=== PATIENT | male | born 1960 | race Caucasian/White ===

== ENCOUNTER 2020-02-04 11:24 | Emergency (ER) | payer MEDICARE, MEDICAID, SELFPAY ==
[2020-02-04 11:24] VITALS: BP 153/84; PULSE 67; RESP 16; TEMP 36.7; O2SAT 97; BMI 30.9
--- NOTE | 2020-02-04 11:39 | W.ED.BACK ---
HPI - Back Pain/Injury General: Chief Complaint: Back Pain/Injury Stated Complaint: BACK PAIN Time Seen by Provider: 02/04/20 11:25 History of Present Illness: HPI Narrative: 59 yo male comes in complaining of low back pain. He has chronic back pain has been to see the pain clinic has had MRI not found any surgical lesions and recommended physical therapy as well as some ablation or epidurals patient has declined and has been trying to do exercise on his own at home. Today he has worsening low back pain no bowel or bladder dysfunction has been noted. Pain is limited to his lumbar region does not radiate into the legs. No recent trauma associated with this pain. Associated symptoms: Deny abdominal pain, chills, dysuria, fatigue, fever(s), nausea, urinary urgency or vomiting Review of Systems Const: Denies: fever, chills, body aches, change in appetite, fatigue or malaise ENMT: Denies: throat pain, ear pain, nasal discharge or nasal congestion Card: Denies: chest pain, edema, shortness of breath on exertion or shortness of breath when lying down Resp: Denies: shortness of breath, productive cough or non-productive cough GI: Denies: abdominal pain, nausea, vomiting, vomiting blood, coffee grounds in vomit, diarrhea, constipation, bloating, blood in stool or black tarry stool : Denies: flank pain, painful urination, urinary frequency or urinary urgency Musc: Reports: back pain Skin/Breast: Denies: rash or itching PFSH ED PFSH: Social History Smoking and tobacco status: former smoker Physical Exam Const: COMMON NORMALS: no apparent distress GENERAL APPEARANCE: cooperative and comfortable ORIENTATION/CONSCIOUSNESS: Yes awake, Yes oriented to person, Yes oriented to place and Yes oriented to time HENMT: COMMON NORMALS: normocephalic, head/scalp atraumatic, hearing grossly normal bilaterally, external ears normal, EAC's normal, TM's normal bilaterally, nasal mucous membranes and turbinates normal, moist oral mucous membranes and oropharynx normal HEAD & SCALP: normocephalic and atraumatic NOSE: nasal mucous membranes and turbinates normal EXTERNAL EAR: Yes external ears normal EXTERNAL AUDITORY CANAL: EAC's normal TYMPANIC MEMBRANE: TM's normal bilaterally Eye: COMMON NORMALS: PERRL, EOMs intact bilaterally, conjunctivae normal and no scleral icterus CONJUNCTIVA: Yes conjunctivae normal PUPIL: Yes PERRL Neck/C-Spine: COMMON NORMALS: full ROM, no lymphadenopathy, supple and no JVD Lymph: LYMPHATIC: no lymphadenopathy noted and no lymphedema noted Resp: COMMON NORMALS: normal respiratory effort, no retractions, no use of accessory muscles and clear to auscultation bilaterally AUSCULTATION: clear to auscultation bilaterally Cardio: COMMON NORMALS: no JVD, regular rate, regular rhythm and no murmurs RATE: regular rate RHYTHM: regular rhythm GI: COMMON NORMALS: soft to palpation and no hepatosplenomegaly AUSCULTATION: Yes normoactive bowel sounds PALPATION: Yes soft, No tender, No guarding and Yes no hepatosplenomegaly Extremity: COMMON NORMALS: normal to inspection, normal capillary refill, no clubbing, cyanosis or edema, no calf tenderness and no pedal edema Neuro: SENSORIUM/ORIENTATION: Yes oriented to person, Yes oriented to place and Yes oriented to time MOTOR EXAM: strength 5/5 throughout DEEP TENDON REFLEXES: Rt Patellar (L4): 2+ and Lt Patellar (L4): 2+ OTHER: Straight leg raising is negative dorsum plantar flexion strength 5/5. Skin: COMMON NORMALS: no rashes or lesions noted GENERAL SKIN EXAM: no rashes or lesions noted Course Vital Signs: Vital signs: Vital Signs Temperature 98.0 F 02/04/20 11:24 Pulse Rate 62 02/04/20 15:19 Respiratory Rate 12 02/04/20 15:31 Blood Pressure 156/81 02/04/20 15:19 Pulse Oximetry 99 02/04/20 15:19 MDM - Back Pain/Injury MDM Narrative: Medical decision making narrative: Chronic back pain would recommend discharging patient home with anti-inflammatories and muscle relaxers I do strongly encourage patient to pursue physical therapy which physical therapy come down they did help him somewhat able to eventually do some improvement. We will discharge him home have him follow-up with for pain clinic for physical therapy referral or further treatments for long-term chronic low back pain. Discharge Plan Discharge Patient Disposition: Home, Self-Care Clinical Impression: Strain of lumbar region Condition: Stable Prescriptions: New diclofenac sodium 75 mg tablet,delayed release (DR/EC) 75 mg PO Q12H PRN (Reason: pain) Qty: 20 RF: 0 Medrol (Jonnathan) 4 mg tablets,dose pack See Rx Instructions .ROUTE .COMPLEX Qty: 21 RF: 0 Discontinued ibuprofen 800 mg tablet 800 mg PO TID PRN (Reason: Pain) RF: 0 No Action losartan 50 mg tablet 50 mg PO DAILY RF: 0 cyclobenzaprine 10 mg tablet 10 mg PO DAILY RF: 0 ipratropium-albuterol 0.5 mg-3 mg(2.5 mg base)/3 mL solution for nebulization 3 ml INHALATION Q6H PRN (Reason: Shortness Of Breath) RF: 0 simvastatin 40 mg tablet 40 mg PO DAILY RF: 0 famotidine 20 mg tablet 20 mg PO BID RF: 0 lorazepam 0.5 mg tablet 0.25 - 0.5 mg PO Q6H PRN (Reason: Anxiety) RF: 0 montelukast 10 mg tablet 10 mg PO DAILY RF: 0 albuterol sulfate 90 mcg/actuation HFA aerosol inhaler 2 puff INHALATION Q6H PRN (Reason: Shortness Of Breath) RF: 0 Symbicort 160-4.5 mcg/actuation Hfa Aerosol Inhaler 2 puff INHALATION BID RF: 0 Discharge Orders: Discharge Order (Routine); Ordered 02/04/20 Ordered By: Fuad Sarabia Referrals: Kym Stinson, [employer]IS[employer] DEVELOPER[employer] [Family Provider] - Discharge Diet: Advance as tolerated Discharge Activity: Limit activity as instructed Patient Instructions: Chronic Back Pain (ED) Discharge Date/Time: 02/04/20 17:20 Coding Level of Care Code ED Career Advisor for Leslie Beck
[2020-02-04] MEDS: ketorolac 30 mg/mL INJ IVP (12:50)
[2020-02-04] MEDS: orphenadrine 30 mg/mL Inj 2 mL 60 MG IVP (12:51)
[2020-02-04 15:19] VITALS: BP 156/81; PULSE 62; RESP 18; O2SAT 99
[2020-02-04 15:31] VITALS: RESP 12
[2020-02-04] MEDS: morphine 4 mg/mL SDV 1 mL 2 MG IVP (15:31)
--- NOTE | 2020-02-04 16:25 | PC.NURSE ---
patient is attemting to sit up at this time
--- NOTE | 2020-02-07 09:07 | DCPLANNER ---
manager ship had message to schedule a follow up appointment for patient for physical therapy. manager ship had order signed for patient to receive physical therapy and faxed to Toro at the [facility] with rehab. manager ship called Toro to make sure she got the order and that everything was ok with the order. Toro stated that the order was received and that the patient is scheduled to start services.
== END 2020-02-04 17:20 | disposition home or self-care (01) ==
PROVIDERS: Emergency Provider Family Medicine; Family Provider Nurse Practitioner Family
DX: S39.012A Strain of muscle, fascia and tendon of lower back, initial encounter (principal); X58.XXXA Exposure to other specified factors, initial encounter; Z87.891 Personal history of nicotine dependence
CPT/HCPCS: 12345; 96374; 96375; 97161; 99282; 99284; J1885; J2270; J2360

== ENCOUNTER 2020-02-18 06:00 | Outpatient (RCR) | payer MEDICARE, MEDICAID, SELFPAY | END 2020-03-16 23:59 | disposition home or self-care (01) | LOC: WPT 06:00 | PROVIDERS: Family Provider Nurse Practitioner Family; PCP Nurse Practitioner Family; Referring Provider Family Medicine; Visit Provider Family Medicine | DX: M54.5 Low back pain (principal) | CPT/HCPCS: 97110; 97163; G0283 ==

== ENCOUNTER 2020-03-17 06:00 | Outpatient (RCR) | payer MEDICARE, MEDICAID, SELFPAY | END 2020-04-15 23:59 | disposition home or self-care (01) | LOC: WPT 06:00 | PROVIDERS: PCP Nurse Practitioner Family; Visit Provider Family Medicine | DX: M54.5 Low back pain (principal) | CPT/HCPCS: 97110 ==

== ENCOUNTER 2020-07-08 13:26 | Outpatient (CLI) | payer MEDICARE, MEDICAID, SELFPAY ==
--- NOTE | 2020-07-08 14:17 | XR_ITS ---
WS: [id number] DEXA (DUAL ENERGY X-RAY ABSORPTIOMETRY) Bone mineral density was performed using a Adrenaline Mobility machine. HISTORY: WEDGE FRACTURE OF VERTEBRA, INITIAL ENCOUNTER FOR FRACTURE COMPARISON: None available. Lumbar spine BMD (L1-L4): 1.184 g/cm2 T score: -0.3 Z score: -0.7 Total hip BMD: Left: 1.135 g/cm2. T score: 0.2 Z score: 0.3 Right: 1.215 g/cm2. T score: 0.8 Z score: 0.8 10 year probability of a major osteoporotic fracture is 12%. XR/XR DEXA axial skeleton* [id number] IMPRESSION: NORMAL BONE MINERAL DENSITY.
--- NOTE | 2020-07-08 14:17 | MR_ITS ---
WS: [id number] MRI CERVICAL SPINE HISTORY: NECK PAIN COMPARISON: None available. Reversal of the upper cervical spine and increased lordosis in the lower cervical spine. There is displacement and desiccation throughout. 3 mm retrolisthesis of C4. No fractures or marrow e linda. Craniocervical junction, C1 and C2 relationship, odontoid process and soft tissues are normal. C2-C3: Normal. C3-C4: Mild osteophytic ridging and annular disc bulging. Larger disc osteophyte complex on the LEFT causing moderate to severe LEFT foraminal stenosis and moderate on the RIGHT. C4-C5: Diffuse osteophytic ridging with disc osteophyte complexes and the neural foramen. Mild centra l with moderate to severe bilateral foraminal stenosis. C5-C6: Diffuse osteophytic ridging with effacement of CSF. Severe central and bilateral foraminal lenin nosis. C6-C7: Central disc protrusion with circumferential disc osteophyte disease. Severe central and bilat eral foraminal stenosis. C7-T1: Normal. Paraspinal soft tissue are normal. Air-fluid level in the sphenoid sinus. MR/MR cervical spin wo con* [id number] IMPRESSION: 1. Multilevel moderate to severe degenerative disc disease. 2. Severe central and bilateral foraminal stenosis at C5-6 and C6-7 due to com bination of osteophytes and disc disease. 3. Mild central with moderate to severe bilateral foraminal stenosis at C4-5. 4. Moderate to severe LEFT and moderate RIGHT foraminal stenosis at C3-4.
== END 2020-07-08 13:27 | disposition home or self-care (01) ==
LOC: RADWPI 13:31
PROVIDERS: PCP Nurse Practitioner Family; Visit Provider Nurse Practitioner Family
DX: M48.50XA Collapsed vertebra, not elsewhere classified, site unspecified, initial encounter for fracture (principal); M50.30 Other cervical disc degeneration, unspecified cervical region; M48.02 Spinal stenosis, cervical region
CPT/HCPCS: 72141; 77080

== ENCOUNTER → 2020-08-07 10:11 | Outpatient (BNVA) | payer MEDICARE, MEDICAID, SELFPAY | PROVIDERS: PCP Nurse Practitioner Family; Visit Provider Orthopaedic Surgery | DX: M54.5 Low back pain (principal) | CPT/HCPCS: 72100; 72114 ==

== ENCOUNTER → 2021-03-23 10:34 | Outpatient (BNVA) | payer MEDICARE, MEDICAID, SELFPAY | PROVIDERS: PCP Nurse Practitioner Family; Visit Provider Internal Medicine | DX: R76.8 Other specified abnormal immunological findings in serum (principal); Z11.59 Encounter for screening for other viral diseases; Z11.1 Encounter for screening for respiratory tuberculosis; M25.50 Pain in unspecified joint; Z79.899 Other long term (current) drug therapy; Z87.891 Personal history of nicotine dependence; L40.9 Psoriasis, unspecified | CPT/HCPCS: 36415; 72202; 73120; 73620; 82550; 86480; 86704; 86803; 87340; 99214 ==

== ENCOUNTER 2021-03-23 12:15 | Outpatient (CLI) | payer MEDICARE, MEDICAID, SELFPAY ==
--- NOTE | 2021-03-23 12:24 | XRR_ITS ---
PROCEDURE INFORMATION: Exam: XR Right Hand Exam date and time: 03/23/2021 12:30 PM Age: 60 years old Clinical indication: Condition or disease; Other: Other specified abnormal immunological findings i. . . ; Additional info: R76.8 - other specified abnormal immunological findings i. . . TECHNIQUE: Imaging protocol: XR Right hand. Views: 1 or 2 views. COMPARISON: US SoftTissue/Extrem t [id number] 04/16/2019 9:50 AM FINDINGS: Bones/joints: Unremarkable Soft tissues: Normal. XR/XR hand RT 2V [id number] IMPRESSION: No acute findings.
--- NOTE | 2021-03-23 12:24 | XRR_ITS ---
PROCEDURE INFORMATION: Exam: XR Left Hand Exam date and time: 03/23/2021 12:30 PM Age: 60 years old Clinical indication: Condition or disease; Other: Other specified abnormal immunological findings i. . . ; Additional info: R76.8 - other specified abnormal immunological findings i. . . TECHNIQUE: Imaging protocol: XR Left hand. Views: 3 or more views. COMPARISON: US SoftTissue/Extrem t [id number] 04/16/2019 9:50 AM FINDINGS: Bones/joints: Unremarkable Soft tissues: Normal. XR/XR hand LT 2V [id number] IMPRESSION: No acute findings.
--- NOTE | 2021-03-23 12:24 | XRR_ITS ---
PROCEDURE INFORMATION: Exam: XR Left Foot Exam date and time: 03/23/2021 12:30 PM Age: 60 years old Clinical indication: Pain; Foot; Bilateral; Additional info: M25.50 - pain in unspecified joint TECHNIQUE: Imaging protocol: XR Left foot. Views: 1 or 2 views. COMPARISON: US SoftTissue/Extrem Lmt [id number] 04/16/2019 9:50 AM FINDINGS: Bones/joints: Negative for acute bony abnormality. Bone spur calcaneus Soft tissues: Normal. XR/XR foot LT 2V [id number] IMPRESSION: 1. No acute findings. 2. Bone spur inferior calcaneus
--- NOTE | 2021-03-23 12:24 | XRR_ITS ---
PROCEDURE INFORMATION: Exam: XR Right Foot Exam date and time: 03/23/2021 12:30 PM Age: 60 years old Clinical indication: Pain; Foot; Bilateral; Additional info: M25.50 - pain in unspecified joint TECHNIQUE: Imaging protocol: XR Right foot. Views: 1 or 2 views. COMPARISON: US SoftTissue/Extrem t [id number] 04/16/2019 9:50 AM FINDINGS: Bones/joints: Unremarkable Soft tissues: Normal. XR/XR foot RT 2V [id number] IMPRESSION: No acute findings.
--- NOTE | 2021-03-23 12:24 | XRR_ITS ---
PROCEDURE INFORMATION: Exam: XR Bilateral Sacroiliac Joints Exam date and time: 03/23/2021 12:30 PM Age: 60 years old Clinical indication: Condition or disease; Other: L40.9 - psoriasis, unspecified TECHNIQUE: Imaging protocol: XR Bilateral XR of the sacroiliac joints. Views: 3 or more views. COMPARISON: No relevant prior studies available. FINDINGS: Bones/joints: Normal. No acute fracture. Soft tissues: Normal. XR/XR sacroiliac [facility] [place] 3V [id number] IMPRESSION: No acute findings.
== END 2021-03-23 12:16 | disposition home or self-care (01) ==
PROVIDERS: PCP Nurse Practitioner Family; Visit Provider Internal Medicine
DX: M25.50 Pain in unspecified joint (principal); R76.8 Other specified abnormal immunological findings in serum; L40.9 Psoriasis, unspecified; Z11.59 Encounter for screening for other viral diseases; Z11.1 Encounter for screening for respiratory tuberculosis
CPT/HCPCS: 72202; 73120; 73620; 82550; 86480; 86704; 86803; 87340

== ENCOUNTER → 2021-07-27 10:28 | Outpatient (BNVA) | payer MEDICARE, MEDICAID, SELFPAY | PROVIDERS: PCP Nurse Practitioner Family; Visit Provider Internal Medicine | DX: R76.8 Other specified abnormal immunological findings in serum (principal); M10.9 Gout, unspecified | CPT/HCPCS: 80053; 84550; 85025; 85651; 86140 ==

== ENCOUNTER → 2021-07-29 10:01 | Outpatient (BNVA) | payer MEDICARE, MEDICAID, SELFPAY | PROVIDERS: PCP Nurse Practitioner Family; Visit Provider Internal Medicine | DX: R76.8 Other specified abnormal immunological findings in serum (principal); L57.0 Actinic keratosis; Z87.891 Personal history of nicotine dependence | CPT/HCPCS: 99214 ==

== ENCOUNTER → 2021-10-22 09:41 | Outpatient (BNVA) | payer MEDICARE, MEDICAID, SELFPAY | PROVIDERS: PCP Nurse Practitioner Family; Visit Provider Internal Medicine | DX: M05.9 Rheumatoid arthritis with rheumatoid factor, unspecified (principal); Z79.899 Other long term (current) drug therapy; R21 Rash and other nonspecific skin eruption; Z87.891 Personal history of nicotine dependence | CPT/HCPCS: 99213 ==

== ENCOUNTER → 2024-06-26 08:51 | Outpatient (BNVA) | payer OTHER, MEDICAID, SELFPAY | PROVIDERS: PCP Nurse Practitioner Family; Visit Provider Orthopaedic Surgery | DX: M54.2 Cervicalgia (principal); M54.12 Radiculopathy, cervical region | CPT/HCPCS: 72050; 99214 ==

== ENCOUNTER → 2024-07-24 14:11 | Outpatient (BNVA) | payer OTHER, MEDICAID, SELFPAY | PROVIDERS: PCP Nurse Practitioner Family; Visit Provider Student in an Organized Health Care Education/Training Program | DX: M25.561 Pain in right knee (principal); M17.11 Unilateral primary osteoarthritis, right knee | CPT/HCPCS: 73560; 73565; 99203 ==

== ENCOUNTER 2024-08-06 13:05 | Outpatient (CLI) | payer OTHER, MEDICAID, SELFPAY ==
--- NOTE | 2024-08-06 13:45 | MR_ITS ---
WS: [id number] MRI CERVICAL SPINE NONCONTRAST HISTORY: Neck Pain COMPARISON: 07/08/2020 Technique: Multiplanar, multisequence noncontrast imaging of the cervical spine. Reversal of the normal upper cervical lordosis. Increase in the lower cervical lordosis. Mild progres olga of malalignment since the prior study from 2019. 3 mm retrolisthesis of C4 and C5. Disc spaces a re all moderately narrowed. No acute fracture or marrow edema. Signal within the cervical cord is normal. Visualized posterior fossa is unremarkable. Craniocervical junction, C1 and C2 relationship, odontoid process and soft tissues are normal. C2-C3: Mild LEFT foraminal narrowing. C3-C4: Osteophytic ridging with annular disc bulging. Larger LEFT foraminal osteophytes. Mild central and RIGHT foraminal stenosis. Moderate to severe LEFT foraminal stenosis. C4-C5: Diffuse annular disc bulging with facet joint arthritis. Retrolisthesis of C4 contributing to severe central and bilateral foraminal stenosis. C5-C6: Diffuse annular disc bulging with osteophytic ridging encroaching upon the ventral thecal sac. Facet arthritis and foraminal osteophytes. Severe central and bilateral foraminal stenosis. C6-C7: Mild annular disc bulging and facet arthritis. Mild bilateral foraminal stenosis. C7-T1: Normal. Paraspinal soft tissue are normal. MR/MR cervical spin wo con* [id number] IMPRESSION: 1. Mild interval progression of degenerative cervical spondylosis and curvatur e since 07/08/2020. 2. Multilevel areas of significant central and foraminal stenosis. 3. C3-4: Mild central and RIGHT foraminal stenosis with moderate to severe LEF T foraminal stenosis. 4. C4-5: Severe central and bilateral foraminal stenosis. 5. C5-6: Severe central and bilateral foraminal stenosis. 6. C6-7: Moderate bilateral foraminal stenosis.
== END 2024-08-06 13:06 | disposition home or self-care (01) ==
LOC: RAD 13:06
PROVIDERS: PCP Nurse Practitioner Family; Visit Provider Orthopaedic Surgery
DX: M43.12 Spondylolisthesis, cervical region (principal); M99.61 Osseous and subluxation stenosis of intervertebral foramina of cervical region; M25.78 Osteophyte, vertebrae; M50.322 Other cervical disc degeneration at C5-C6 level
CPT/HCPCS: 72141

== ENCOUNTER → 2024-11-05 14:25 | Outpatient (BNVA) | payer OTHER, MEDICAID, SELFPAY | PROVIDERS: PCP Nurse Practitioner Family; Visit Provider Surgery | DX: K40.20 Bilateral inguinal hernia, without obstruction or gangrene, not specified as recurrent (principal) | CPT/HCPCS: 99204 ==

== ENCOUNTER → 2024-11-08 12:55 | Outpatient (BNVA) | payer OTHER, MEDICAID, SELFPAY | PROVIDERS: PCP Nurse Practitioner Family; Visit Provider Orthopaedic Surgery | DX: Z09 Encounter for follow-up examination after completed treatment for conditions other than malignant neoplasm (principal) | CPT/HCPCS: 99214 ==

== ENCOUNTER 2024-11-20 07:05 | Day surgery (SDC) | payer OTHER, MEDICAID, SELFPAY ==
[2024-11-20] VITALS (17 sets, daily range): BP systolic 112–170; BP diastolic 80–120; PULSE 61–75; RESP 12–68; TEMP 36.2–36.4; O2SAT 93–98; BMI 31.1
[2024-11-20] MEDS: sodium chloride 0.9% 1,000 ML 30 ML IV (07:39)
[2024-11-20] MEDS: ipratropium-albuterol 3 mL Neb INHALATION (07:54)
--- NOTE | 2024-11-20 08:01 | ANES.PREANE2 ---
Pre-Anesthetic Assessment Height/Weight: Height 1.8 m Weight 101.151 kg Temp Pulse Resp BP Pulse Ox O2 Del Method 97.2 F L 75 18 130/99 96 Room Air 11/20/24 07:21 11/20/24 07:21 11/20/24 07:21 11/20/24 07:21 11/20/24 07:21 11/20/24 07:21 Operation Date: 11/20/24 09:05 Proposed Procedures p lap bilateral inguinal hernia repair with mesh [id number] x2, K40.20(Bilateral) - Juventino Gonzales DO Familial anesthetic complications: None Was Beta Adam taken within 24 hours: N/A Was Clonidine taken within 24 hours: N/A Last intake: Intake Last Liquid Date 11/19/24 Last Liquid Time 22:30 Last Solid Date 11/19/24 Last Solid Time 14:00 Social No alcohol and No tobacco Exam alert, oriented x 3, clear to auscultation bilaterally (Bilateral wheezes, all lobes) and regular rate & rhythm Airway Mallampati: Class III Dentition: other (none) Comments: Comments: full [place] Pulmonary Chronic Obstructive Pulmonary Disease (O2 at home) and Sleep Apnea GI Gastroesophageal Reflux Disease Anesthetic Plan ASA status: 4 Anesthesia: General Risk of > 500 ml blood loss (7ml/kg in children): No Medications/Allergies Home Medications ?Medication ?Instructions ?Recorded ?Confirmed ?Last Taken ?Type albuterol sulfate 90 mcg/actuation 2 puff inhalation Q6H PRN 02/04/20 11/19/24 11/19/24 History aerosol inhaler Shortness Of Breath budesonide-formoterol HFA 160 2 puff inhalation BID 02/04/20 11/19/24 11/20/24 History mcg-4.5 mcg/actuation aerosol inhaler (Symbicort) cyclobenzaprine 10 mg tablet 10 mg PO DAILY 02/04/20 11/19/24 02/04/20 History famotidine 20 mg tablet 20 mg PO BID 02/04/20 11/19/24 11/19/24 History ipratropium 0.5 mg-albuterol 3 mg 3 ml inhalation Q6H PRN Shortness 02/04/20 11/20/24 11/19/24 History (2.5 mg base)/3 mL nebulization Of Breath soln montelukast 10 mg tablet 10 mg PO DAILY PRN allergies 10/22/21 11/19/24 Unknown History tamsulosin 0.4 mg capsule 0.4 mg PO DAILY 11/05/24 11/19/24 11/19/24 History Allergies Allergy/AdvReac Type Severity Reaction Status Date / Time sertraline (From Zoloft) Allergy Intermediate ALGY-Rash Verified 11/08/24 13:06 Current Medications Generic Name Dose Route Start Last Admin Trade Name Troyq PRN Reason Stop Dose Admin Sodium Chloride 1,000 mls @ 30 mls/hr 11/20/24 07:15 11/20/24 07:39 Sodium Chloride 0.9% IV 11/21/24 07:14 30 mls/hr .Q24H JUAREZ Administration PFSH Anesthesia Medical History Arthritis Stenosis, cervical spine Family History Sister Cancer Diabetes Hypertension Brother Cancer Diabetes Hypertension Mother Cancer Hypertension Family/Other Rheumatoid arthritis Denies family history of CAD (coronary artery disease) Stroke Social History Smoking and tobacco/nicotine status: never used tobacco/nicotine Alcohol intake: never Substance/Drug Use: never Data Anesthesia Cardiac Studies: No Data to Display
[2024-11-20] MEDS: ceFAZolin 2,000 mg SDV 2000 MG IVP (08:34)
--- NOTE | 2024-11-20 08:35 | W.PM.OPSUD ---
Surgery/Procedure H&P Update DATE OF PROCEDURE: November 20, 2024 DATE H&P PERFORMED: 11/05/24 H&P UPDATE INFORMATION: I have reviewed H&P completed within last 30 days, I have examined patient prior to procedure and No changes to prior documentation PLANNED PROCEDURE: Operation Date: 11/20/24 09:05 Proposed Procedures p lap bilateral inguinal hernia repair with mesh [id number] x2, K40.20(Bilateral) - Juventino Gonzales DO
[2024-11-20] MEDS: lidocaine-epi 2% PF 1:200,000 20 mL SDV XX (09:01)
--- NOTE | 2024-11-20 09:40 | PM.OP ---
Operative Report Date of procedure: November 20, 2024 Surgeon: Juventino Gonzales DO Procedure: Pre-op diagnosis: Bilateral inguinal hernias Post-op diagnosis: Bilateral indirect inguinal hernias Procedure done: Laparoscopic (TEPP) repair of left inguinal hernias with mesh Laparoscopic (TEPP) repair of right inguinal hernias with mesh Implants: Left and right extra-large 3D max Bard mesh is Specimens removed/disposition: None Surgeon: Juventino Gonzales DO Anesthesia: General and Local Estimated blood loss (mL): 5 Complications: None apparent Brief History: This is a very pleasant 64-year-old gentleman who presented my office with bilateral inguinal hernias. Laparoscopic repair with mesh was indicated. The risk and benefits were explained and documented. Procedure: Patient was wheeled into the operative room and placed on the OR table in a supine position. Abdomen was inspected prepped and draped in usual sterile fashion. Time-out was performed and all present were in agreement. A 15 blade scalpel was used to make 1.2 centimeter incision infraumbilically. Combination of sharp and blunt dissection was performed down to the anterior rectus sheath which was opened sharply. The dissecting balloon was then inserted into the space of Retzius and blown up. We put the camera into the port and identified that we were in the correct space. I then placed 2 5 millimeter trocars suprapubically in the midline. I then used endokitners to bluntly dissect in the space of Retzius out laterally. An indirect inguinal hernia was identified on the right. Blunt dissection was performed to dissect down the hernia sac until the vas deferens dove medially. An extra-large 3D max Bard right inguinal mesh was then placed into the space of Retzius. The mesh was unrolled and tacked once medially at the pubic bone. The mesh laid out nicely over the spermatic cord. An indirect inguinal hernia was identified on the left. Blunt dissection was performed to dissect down the hernia sac until the vas deferens dove medially. There was a moderate to large cord lipoma that I stripped from the spermatic cord and removed from the indirect hernia. An extra-large 3D max Bard left inguinal mesh was then placed into the space of Retzius. The mesh was unrolled and tacked once medially at the pubic bone. The mesh laid out nicely over the spermatic cord. Hernia sacs were held underneath the meshes as the insufflation was released. Incisions were closed with 4 O Vicryl in a subcuticular interrupted fashion. Skin glue was applied. Patient tolerated the procedure well.
[2024-11-20] MEDS: fentaNYL 50 mcg/mL INJ 2mL IVP (09:51)
[2024-11-20] MEDS: morphine 4 mg/mL SDV 1 mL 2 MG IVP (10:02)
[2024-11-20] MEDS: ondansetron 2 mg/ML SDV 2 mL 4 MG IVP ×2 (10:10→10:48)
[2024-11-20] MEDS: HYDROmorphone 1 mg/mL INJ 1 mL 0.5 MG IVP (10:13)
[2024-11-20] MEDS: HYDROcodone-acetaminophen 7.5-325 mg Tablet 1 TAB PO (10:46)
--- NOTE | 2024-11-20 11:50 | ANE.PACU2 ---
Inpatient post-anesthesia follow up: Airway intact: Yes Vital signs: Temperature 97.5 F Pulse Rate 67 Respiratory Rate 18 Blood Pressure 112/80 Pulse Oximetry 96 Oxygen Delivery Me thod Room Air Oxygen Flow Rate Fraction of Inspir ed Oxygen Hydration adequate: Yes Nausea and vomiting: No Pain level: 1 Mental status: Baseline
== END 2024-11-20 11:54 | disposition home or self-care (01) ==
PROVIDERS: PCP Nurse Practitioner Family; Visit Provider Surgery
PROC: (CPT 49650; principal; 2024-11-20 09:05)
DX: K40.20 Bilateral inguinal hernia, without obstruction or gangrene, not specified as recurrent (principal); J44.9 Chronic obstructive pulmonary disease, unspecified; G47.30 Sleep apnea, unspecified; Z79.899 Other long term (current) drug therapy; Z88.8 Allergy status to other drugs, medicaments and biological substances
CPT/HCPCS: 49650; C1781; J0690; J1100; J1171; J2270; J2405; J2704; J3010; J3490; J7030

== ENCOUNTER → 2024-12-03 10:17 | Outpatient (BNVA) | payer OTHER, MEDICAID, SELFPAY | PROVIDERS: PCP Nurse Practitioner Family; Visit Provider Surgery | DX: R03.0 Elevated blood-pressure reading, without diagnosis of hypertension (principal); K40.20 Bilateral inguinal hernia, without obstruction or gangrene, not specified as recurrent; Z98.890 Other specified postprocedural states; Z87.19 Personal history of other diseases of the digestive system | CPT/HCPCS: 99024 ==

== ENCOUNTER → 2025-02-14 15:33 | Outpatient (BNVA) | payer OTHER, MEDICAID, SELFPAY | PROVIDERS: PCP Nurse Practitioner Family; Visit Provider Orthopaedic Surgery | DX: M54.2 Cervicalgia (principal) | CPT/HCPCS: 72050; 99214 ==

== ENCOUNTER → 2025-05-21 11:52 | Outpatient (BNVA) | payer OTHER, MEDICAID, SELFPAY | PROVIDERS: PCP Nurse Practitioner Family; Referring Provider Orthopaedic Surgery; Visit Provider Nurse Practitioner Family | DX: M54.2 Cervicalgia (principal) | CPT/HCPCS: 99214 ==

== ENCOUNTER → 2025-07-02 08:30 | Outpatient (BNVA) | payer OTHER, MEDICAID, SELFPAY | PROVIDERS: PCP Nurse Practitioner Family; Visit Provider Nurse Practitioner Family | DX: M54.2 Cervicalgia (principal); M54.50 Low back pain, unspecified; G89.29 Other chronic pain | CPT/HCPCS: 99214 ==

== ENCOUNTER → 2025-07-10 09:44 | Outpatient (BNVA) | payer OTHER, MEDICAID, SELFPAY | PROVIDERS: PCP Nurse Practitioner Family; Visit Provider Nurse Practitioner Family | DX: M54.16 Radiculopathy, lumbar region (principal); M54.50 Low back pain, unspecified; G89.29 Other chronic pain; M54.2 Cervicalgia | CPT/HCPCS: 20553; 99214; J1010; J3490 ==

== ENCOUNTER → 2025-07-24 10:09 | Outpatient (BNVA) | payer OTHER, MEDICAID, SELFPAY | PROVIDERS: PCP Nurse Practitioner Family; Visit Provider Nurse Practitioner Family | DX: M54.50 Low back pain, unspecified (principal); M54.2 Cervicalgia; G89.29 Other chronic pain; R03.0 Elevated blood-pressure reading, without diagnosis of hypertension | CPT/HCPCS: 99214 ==

== ENCOUNTER 2025-08-15 08:00 | Outpatient (RCR) | payer OTHER, MEDICAID, SELFPAY | END 2025-08-16 23:59 | disposition home or self-care (01) | LOC: WPT 08:00 | PROVIDERS: PCP Nurse Practitioner Family; Visit Provider Nurse Practitioner Family | DX: M54.50 Low back pain, unspecified (principal); G89.29 Other chronic pain | CPT/HCPCS: 97110; 97161; 97530 ==

== ENCOUNTER → 2025-09-02 10:57 | Outpatient (BNVA) | payer MEDICARE, MEDICAID, SELFPAY | PROVIDERS: PCP Nurse Practitioner Family; Visit Provider Nurse Practitioner Family | DX: M54.50 Low back pain, unspecified (principal); M54.2 Cervicalgia; G89.29 Other chronic pain; R03.0 Elevated blood-pressure reading, without diagnosis of hypertension; Z87.891 Personal history of nicotine dependence | CPT/HCPCS: 99214 ==

== ENCOUNTER 2025-09-04 08:57 | Outpatient (RCR) | payer MEDICARE, MEDICAID, SELFPAY | END 2025-09-15 23:59 | disposition home or self-care (01) | LOC: WPT 08:57 | PROVIDERS: PCP Nurse Practitioner Family; Visit Provider Nurse Practitioner Family | DX: M54.50 Low back pain, unspecified (principal); G89.29 Other chronic pain | CPT/HCPCS: 97110; 97530 ==